=== PATIENT | female | born 1970 | race African-American/Black ===

== ENCOUNTER 2017-10-23 19:58 | Emergency (ER) | payer MEDICAID ==
[~2017-10-23] VITALS: Ht 172.7 cm; Wt 64.0 kg
[2017-10-23 20:20] VITALS: BP 123/70
[2017-10-23] MEDS ORDERED: IBUPROFEN 600MG TABLET PO ONE (21:00)
== END 2017-10-23 21:30 | disposition home or self-care (01) ==
LOC: ER 20:53
DX: R10.30 Lower abdominal pain, unspecified (principal); R30.0 Dysuria; R39.15 Urgency of urination; Z88.2 Allergy status to sulfonamides; Z88.8 Allergy status to other drugs, medicaments and biological substances
CPT/HCPCS: 81025; 99283

== ENCOUNTER 2020-12-05 20:49 | Emergency (ER) | payer MEDICAID ==
[~2020-12-05] VITALS: Ht 172.7 cm; Wt 79.0 kg
[2020-12-05] MEDS ORDERED: TRAMADOL 50MG TABLET PO ONE (21:15)
[2020-12-05 21:58] VITALS: BP 125/71
== END 2020-12-05 22:00 | disposition home or self-care (01) ==
LOC: ER 20:49
DX: H66.91 Otitis media, unspecified, right ear (principal); M26.69 Other specified disorders of temporomandibular joint; Z88.2 Allergy status to sulfonamides; Z88.1 Allergy status to other antibiotic agents
CPT/HCPCS: 99283

== ENCOUNTER 2020-12-19 20:55 | Emergency (ER) | payer MEDICAID ==
[~2020-12-19] VITALS: Ht 172.7 cm; Wt 78.0 kg
[2020-12-19 21:44] VITALS: BP 112/69
== END 2020-12-19 22:46 | disposition home or self-care (01) ==
LOC: ER 20:55
DX: H72.92 Unspecified perforation of tympanic membrane, left ear (principal); Z88.2 Allergy status to sulfonamides; Z88.1 Allergy status to other antibiotic agents
CPT/HCPCS: 99283

== ENCOUNTER 2022-08-02 21:31 | Emergency (ER) | payer MEDICAID, OTHER ==
[~2022-08-02] VITALS: Ht 172.7 cm; Wt 82.8 kg
[2022-08-02 22:59] LABS: CLARITY URINE CLEAR (CLEAR); COLOR URINE YELLOW (YELLOW); KETONES URINE NEGATIVE (NEGATIVE); LEUKOCYTE ESTERASE URINE 3+ (NEGATIVE); NITRITE URINE NEGATIVE (NEGATIVE); OCCULT BLOOD URINE 1+ (NEGATIVE); PROTEIN URINE NEGATIVE (NEGATIVE); SPECIFIC GRAVITY URINE 1.006 (1.005-1.030); UROBILINOGEN URINE 0.2 E.U./dL (0.2-1.0)
[2022-08-03] MEDS ORDERED: LIDOCAINE HCL 1% 20ML VIAL (Pyxis) INJ INFIL ONE (03:00)
[2022-08-03] MEDS ORDERED: CEFTRIAXONE SODIUM 500 MG/VIAL IM ONE (03:00)
[2022-08-03] MEDS ORDERED: METR-167 PO (03:40)
[2022-08-03] MEDS ORDERED: DOXY100T28 PO (03:40)
[2022-08-03 04:00] VITALS: BP 126/74
[2022-08-04 06:07] LABS: HIV SCREEN 4G Non Reactive (Non Reactive)
[2022-08-05 05:07] LABS: NEISSERIA GONORRHOEAE NAA Negative (Negative)
== END 2022-08-03 04:01 | disposition home or self-care (01) ==
LOC: ER 21:31
DX: N72 Inflammatory disease of cervix uteri (principal); A59.9 Trichomoniasis, unspecified; Z88.2 Allergy status to sulfonamides
CPT/HCPCS: 81003; 81025; 86592; 87086; 87210; 87389; 87491; 87591; 96372; 99284; J0696; 99283

== ENCOUNTER 2023-11-16 20:23 | Emergency (ER) | payer MEDICAID ==
[~2023-11-16] VITALS: Ht 172.7 cm; Wt 77.2 kg
[~2023-11-16 20:23] MED LIST: DOXY100T28 PO; METR-167 PO
[2023-11-16 22:07] VITALS: O2SAT 100
[2023-11-16] MEDS ORDERED: OCUFLX EACHEYE ×3 (22:42→22:56)
[2023-11-16 23:01] VITALS: BP 138/76; PULSE 78; RESP 14; TEMP 98.9
== END 2023-11-16 23:12 | disposition home or self-care (01) ==
LOC: ER 20:23
DX: H10.33 Unspecified acute conjunctivitis, bilateral (principal)
CPT/HCPCS: 99281; 99283

== ENCOUNTER 2024-08-01 19:11 | Emergency (ER) | payer MEDICAID, OTHER ==
[~2024-08-01] VITALS: Ht 172.7 cm; Wt 86.0 kg
[~2024-08-01 19:11] MED LIST changes: +OCUFLX EACHEYE
[2024-08-01 19:13] VITALS: O2SAT 100
[2024-08-01 19:32] VITALS: BP 127/75; PULSE 92; RESP 18; TEMP 98.5; O2SAT 99
[2024-08-02] MEDS ORDERED: AMOX600S39 MT (01:26)
[2024-08-02] MEDS ORDERED: TOPUD MT (01:26)
[2024-08-02] MEDS ORDERED: IBUP-1525 MT (01:26)
== END 2024-08-02 01:35 | disposition home or self-care (01) ==
LOC: ER 19:11
DX: K02.9 Dental caries, unspecified (principal); Z79.899 Other long term (current) drug therapy; Z88.2 Allergy status to sulfonamides
CPT/HCPCS: 99283; Z7610